=== PATIENT | female | born 1990 | race Caucasian/White ===

== ENCOUNTER 2017-01-07 06:54 | Inpatient (IN) | payer BC ==
[2017-01-07] MEDS ORDERED: Misoprostol 25 MCG (1/4 of 100 MCG) Tab ONE (07:06)
[2017-01-07] MEDS ORDERED: Nalbuphine 20 MG/1 ML Amp IVPUSH PRN (07:29)
[2017-01-07] MEDS ORDERED: Sodium Chloride 0.9% 10 ML Syringe FLUSH PRN (07:29)
[2017-01-07] MEDS ORDERED: Lactated Ringers 1,000 ML IV SCH (07:30)
--- NOTE | 2017-01-07 07:46 | PCM.LDHP ---
L&D History of Present Illness - General Date of Service: 01/07/17 Admit Problem/Dx: Admission Diagnosis/Problem Admission Diagnosis/Problem Source of Information: Patient History Limitations: Reports: No Limitations - History of Present Illness Introduction:: 26-year-old 002 CANDIE 01/12/17 estimated gestational age 39 weeks 2 days admitted for induction of labor GBS negative patient had Cytotec 25 g placed at 0720 hrs. patient had positive fibronectin on 10/22/16 and given Celestone 10/22/16 and 10/23/16 O+ antibody screen negative initial hemoglobin and hematocrit 05/10/1614.9/42.8 platelets 295,000 rubella immune serology nonreactive Fluoroscopy and urine culture negative hepatitis B surface antigen negative HIV abuse screen 85 on 08/13/16 hemoglobin hematocrit on 10/22/1710.5 and 33.6 negative group B strep Improves with: Reports: None Worsens with: Reports: None Associated Symptoms: Reports: N - Related Data Allergies/Adverse Reactions: Allergies Allergy/AdvReac Type Severity Reaction Status Date / Time amoxicillin Allergy Swelling Verified 12/02/16 14:36 Home Medications: Home Meds Ciprofloxacin/Ciprofloxa HCl [Cipro Xr 500 mg Tablet] 500 mg PO BID #10 tbmp.24hr 06/20/14 [Rx] Past Medical History : 3 Para: 2 (2001) Social & Family History - Tobacco Use Smoking Status *Q: Current Status Unknown - Recreational Drug Use Recreational Drug Use: No H&P Review of Systems - Review of Systems: Review Of Systems: See Below General: Reports: No Symptoms HEENT: Reports: No Symptoms Pulmonary: Reports: No Symptoms Cardiovascular: Reports: No Symptoms Gastrointestinal: Reports: No Symptoms Genitourinary: Reports: No Symptoms Musculoskeletal: Reports: No Symptoms Skin: Reports: No Symptoms Psychiatric: Reports: No Symptoms Neurological: Reports: No Symptoms Hematologic/Lymphatic: Reports: No Symptoms Immunologic: Reports: No Symptoms L&D Exam - Exam Exam: See Below - Vital Signs Weight: 158 lb 4.8 oz - OB Specific Fundal Height In cm: 38 Contraction Intensity: Mild Movement: Active Heart Tones: Present Heart Tones per Min: 138 Heart Rate (FHR) Variability: Moderate (6-25 bmp) Presentation: Vertex - Sommers Score Sommers Score Cervix Position: Posterior Sommers Score Consistency: Soft Sommers Score Effacement: 51-70% Sommers Score Dilation: 1-2 cm Sommers Score 's Station: -2 Sommers Score Total: 6 - Exam General: Alert, Oriented HEENT: Mucosa Moist & [place] Neck: Supple, Trachea Midline Lungs: Clear to Auscultation, Normal Respiratory Effort Cardiovascular: Regular Rate, Regular Rhythm Abdomen: Normal Bowel Sounds, Soft, Pelvis Stable Genitourinary: Normal external exam Extremities: Normal Inspection Skin: Warm, Dry, Intact Neurological: Reflexes Equal Bilateral Psychiatric: Alert, Normal Affect, Normal Mood - Problem List (1) 39 weeks gestation of SNOMED Code(s): 67798351 ICD Code: Z3A.39 - 39 WEEKS GESTATION OF Status: Acute Current Visit: Yes Problem List Initiated/Reviewed/Updated: No Orders Last 24hrs: Active Orders 24 hr Category Date Time Status Communication Order [RC] ASDIRECTED Care 01/07/17 07:29 Ordered Communication Order [RC] ASDIRECTED Care 01/07/17 07:29 Ordered Communication Order [RC] ASDIRECTED Care 01/07/17 07:29 Ordered Monitoring [RC] INTERMITTENT Care 01/07/17 07:29 Ordered Notify Provider [RC] ASDIRECTED Care 01/07/17 07:29 Ordered Peripheral IV Care [RC] . DIRECTED Care 01/07/17 07:29 Ordered Vaginal Exam [RC] ASDIRECTED Care 01/07/17 07:29 Ordered Vital Signs [RC] ASDIRECTED Care 01/07/17 07:29 Ordered Clear Liquid Diet [DIET] Diet 01/07/17 Breakfast Ordered CBC WITH AUTO DIFF [HEME] Stat Lab 01/07/17 07:29 Ordered TYPE AND SCREEN [BBK] Stat Lab 01/07/17 07:29 Ordered Lactated Ringers [Ringers, Lactated] 1,000 ml Med 01/07/17 07:30 Ordered IV ASDIRECTED Misoprostol [Cytotec] Med 01/07/17 10:30 Ordered 25 mcg PO Q3H Nalbuphine [Nubain] Med 01/07/17 07:29 Ordered 10 mg IVPUSH Q3H PRN Sodium Chloride 0.9% [Saline Flush] Med 01/07/17 07:29 Ordered 10 ml FLUSH ASDIRECTED PRN Medication Administration Instruction [OM.PC] Oth 01/07/17 07:30 Ordered ASDIRECTED Peripheral IV Insertion Adult [OM.PC] Routine Oth 01/07/17 07:29 Ordered Assessment/Plan Comment:: Mid for induction
--- NOTE | 2017-01-07 08:53 | PCM.OPNOTE ---
- General Post-Op/Procedure Note Date of Surgery/Procedure: 01/07/17 Operative Procedure(s): Repeat section Pre Op Diagnosis: 39 weeks gestation, prior section 2, accessory lobe of the placenta by ultrasound Post-Op Diagnosis: Same Anesthesia Technique: Spinal Primary Surgeon: Freddy Bolivar Secondary Surgeon: Celestino Cameron Anesthesia Provider: Cesia Seth Engineering Mechanic: Cyndi Livingston (MS3) Fluid Replacement, Intraop: 1,000 Output, Urine Amount: 150 EBL in mLs: 500 Drain/Tube Comments:: Christiansen Complications: None Condition: Good Free Text/Narrative:: Patient was transported to operating room #[address] and functioning prior surgery Ancef 2 g given intravenously prior surgery spinal anesthesia placed patient Draped in sterile fashion timeout performed confirming name Chung Wolff procedure repeat section adequate level of anesthesia was confirmed was brought to the operating room injecting 20 mL of 0.5% Marcaine without epinephrine area of the planned incision the Pfannenstiel incision was made and care was sharp section to into the anterior fascia peritoneal cavity entered without difficulty bladder flap created pushed caudad low segment transverse performed delivering a male liveborn 0809 hrs. on Saturday01/07/17 weighing 8 lbs. 9 oz. Apgars 7/9 Dr. Mathews present and attended to the cord blood was collected from normal three-vessel cord placenta was removed manually and confirmed small approximately 8 x 8 cm excess relocated to the placenta placenta delivered Schultze manually discarded after examination. The endometrial cavity was inspected sponge needle pack asthma sharp count correct 1 the uterus closed in 2 layers first layer running locking suture of 0 Monocryl second layer horizontal imbricating suture modified Lembert additional [id number] sutures taken in the midline in 3 areas for hemostasis both tubes and ovaries appeared normal clot screen from the gutters and cul-de-sac uterus pleasant abdominal cavity uterine incision reinspected no bleeding sponge needle pack asthma sharp count correct 2 and the abdominal cavity was closed with #1 PDS running suture irrigation carried out in the subcutaneous tissue and utilizing cautery to reduce scar tissue and allow better approximation of the skin closure the skin was closed with 3-0 Monocryl on Nathan needle, Preneo applied patient transported to postanesthesia care unit in satisfactory condition no blood transfusions were required not anticipated Nusser condition should change clots were cleaned from the vagina prior to transport to postanesthesia care unit.
[2017-01-07] MEDS ORDERED: Misoprostol 25 MCG (1/4 of 100 MCG) Tab VAG ONE (09:30)
[2017-01-07] MEDS ORDERED: Misoprostol 25 MCG (1/4 of 100 MCG) Tab PO SCH (10:30)
[2017-01-07] MEDS ORDERED: Ondansetron 4 MG/2 ML SDV IVPUSH PRN (11:10)
[2017-01-07] MEDS ORDERED: ePHEDrine 50 MG/ML SDV IVPUSH PRN (11:10)
[2017-01-07] MEDS ORDERED: diphenhydrAMINE 50 MG/ML SDV IVPUSH PRN (11:10)
[2017-01-07] MEDS ORDERED: fentaNYL 100 MCG/2 ML SDV EPIDUR PRN (11:10)
[2017-01-07] MEDS ORDERED: Bupivacaine/fentaNYL/NS 100 ML Bag EPIDUR SCH (11:15)
[2017-01-07] MEDS ORDERED: Oxytocin/Lactated Ringers 10 UNIT/1,000 ML BAG IV SCH (13:15)
--- NOTE | 2017-01-07 13:23 | PCM.DEL ---
L & D Note - General Info Date of Service: 01/07/17 - Delivery Note Labor: spontaneous Cervical Ripening Method: Misoprostil (25 g per vagina 1) Delivery Outcome: Livebirth (Male liveborn 1306 hrs. Saturday01/07/17 NICO 3800 g 8 lbs. 6 oz. Apgars 8/9) Delivery Method: Spontaneous Vaginal Delivery Infant Delivery Mode: Spontaneous Presentation: Left Occiput Anterior (NICO) Nuchal Cord: None Prep: Povidone-Iodine (Betadine Anesthesia Type: Epidural Episiotomy Type: None Laceration: 1st degree (First-degree bilateral periurethral lacerations not bleeding not sutured) Placenta: intact, spontaneous (1309 hrs. on Saturday01/07/17 intact central insertion discarded) Cord: 3 vessels Estimated Blood Loss: 250 Resuscitation Needed: No : Suctioned, Bulb Syringe, Stimulated, Warmed, Beth[place] Used, Warmer Used Provider: Freddy Bolivar Score 1 min: 8 Score 5 min: 9 - Patient Data Vitals - most recent: Last Vital Signs Temp 98.6 F 01/07/17 07:29 Pulse 107 H 01/07/17 07:29 Resp 17 01/07/17 07:29 BP 112/80 01/07/17 07:29 Pulse Ox 99 01/07/17 07:29 Weight - most recent: 161 lb 1.6 oz I&O - last 24 hours: Intake & Output 01/06/17 01/07/17 01/07/17 22:59 06:59 14:59 Intake Total 1000 Output Total 150 Balance 850 Lab Results last 24 hrs: Laboratory Results - last 24 hr 01/07/17 01/07/17 Range/Units 07:48 07:48 WBC 12.24 H (3.98-10.04) K/mm3 RBC 3.92 L (3.98-5.22) M/mm3 Hgb 11.9 (11.2-15.7) gm/L Hct 36.2 (34.1-44.9) % MCV 92.3 (79.4-94.8) fl MCH 30.4 (25.6-32.2) pg MCHC 32.9 (32.2-35.5) g/dl RDW Std Deviation 48.5 H (36.4-46.3) fL Plt Count 183 (182-369) K/mm3 MPV 9.8 (9.4-12.3) fl Neut % (Auto) 75.1 H (34.0-71.1) % Lymph % (Auto) 14.8 L (19.3-51.7) % Delta % (Auto) 7.9 (4.7-12.5) % Eos % (Auto) 0.9 (0.7-5.8) Baso % (Auto) 0.2 (0.1-1.2) % Neut # (Auto) 9.20 H (1.56-6.13) K/mm3 Lymph # (Auto) 1.81 (1.18-3.74) K/mm3 Delta # (Auto) 0.97 H (0.24-0.36) K/mm3 Eos # (Auto) 0.11 (0.04-0.36) K/mm3 Baso # (Auto) 0.02 (0.01-0.08) K/mm3 Manual Slide Review Normal smear Blood Type O POSITIVE Gel Antibody Screen Negative Med Orders - Current: Current Medications Diphenhydramine HCl (Benadryl) 25 mg IVPUSH Q6H PRN PRN Reason: Pruritis Ephedrine Sulfate (Ephedrine Sulfate) 5 mg IVPUSH ASDIRECTED PRN PRN Reason: Hypotension Fentanyl (Sublimaze) 100 mcg EPIDUR Q3H PRN PRN Reason: Pain Last Admin: 01/07/17 11:46 Dose: 100 mcg Fentanyl/Bupivacaine HCl (Fentanyl/Bupivacaine/Ns 2 Mcg-0.125% 100 Ml) 100 ml EPIDUR ASDIRECTED CARINA Last Admin: 01/07/17 11:47 Dose: 100 ml Lactated Ringer's (Ringers, Lactated) 1,000 mls @ 40 mls/hr IV ASDIRECTED CARINA Oxytocin/Lactated Ringer's (Pitocin In Lr 10 Units/1,000 Ml) 10 unit in 1,000 mls @ 900 mls/hr IV ASDIRECTED CARINA PRN Reason: 150 MUNITS/MIN Misoprostol (Cytotec) 25 mcg PO Q3H [facility] Stop: 01/07/17 13:31 Nalbuphine HCl (Nubain) 10 mg IVPUSH Q3H PRN PRN Reason: Pain Ondansetron HCl (Zofran) 4 mg IVPUSH ONETIME PRN PRN Reason: Nausea/Vomiting Sodium Chloride (Saline Flush) 10 ml FLUSH ASDIRECTED PRN PRN Reason: Keep Vein Open Discontinued Medications Misoprostol (Cytotec) Confirm Administered Dose 25 mcg .ROUTE .STK-MED ONE Stop: 01/07/17 07:07 Last Admin: 01/07/17 09:12 Dose: Not Given Misoprostol (Cytotec) 25 mcg VAG ONETIME ONE Stop: 01/07/17 09:31 Last Admin: 01/07/17 07:20 Dose: 25 mcg - Problem List & Annotations (1) 39 weeks gestation of SNOMED Code(s): 50608992 Code(s): Z3A.39 - 39 WEEKS GESTATION OF Status: Acute Current Visit: Yes (2) First-degree perineal laceration, with delivery SNOMED Code(s): 811825109 Code(s): O70.0 - FIRST DEGREE PERINEAL LACERATION DURING DELIVERY Status: Acute Current Visit: Yes - Problem List Review Problem List Initiated/Reviewed/Updated: No - My Orders Last 24 Hours: My Active Orders 01/07/17 07:29 Communication Order [RC] ASDIRECTED Communication Order [RC] ASDIRECTED Monitoring [RC] INTERMITTENT Notify Provider [RC] ASDIRECTED Peripheral IV Care [RC] . DIRECTED Vital Signs [RC] ASDIRECTED Nalbuphine [Nubain] 10 mg IVPUSH Q3H PRN Sodium Chloride 0.9% [Saline Flush] 10 ml FLUSH ASDIRECTED PRN Peripheral IV Insertion Adult [OM.PC] Routine 01/07/17 07:30 Lactated Ringers [Ringers, Lactated] 1,000 ml IV ASDIRECTED Medication Administration Instruction [OM.PC] ASDIRECTED 01/07/17 08:54 Resuscitation Status Routine 01/07/17 10:30 Misoprostol [Cytotec] 25 mcg PO Q3H 01/07/17 13:15 Oxytocin/Lactated Ringers [Pitocin in LR 10 Units/1,000 ML] 10 unit in 1,000 ml IV ASDIRECTED 01/07/17 Breakfast Clear Liquid Diet [DIET] - Plan Plan:: Mid for induction
[2017-01-07] MEDS ORDERED: Acetaminophen 325 MG Tab PO PRN (13:29)
[2017-01-07] MEDS ORDERED: Benzocaine/Menthol 20%-0.5% Spray 56 GM Canister TOP PRN (13:29)
[2017-01-07] MEDS ORDERED: Bupivacaine 0.25% 10 ML SDV ONE (13:29)
[2017-01-07] MEDS ORDERED: Docusate Sodium 100 MG Cap PO PRN (13:29)
[2017-01-07] MEDS ORDERED: Lanolin 100% Cream 7 GM Tube TOP PRN (13:29)
[2017-01-07] MEDS ORDERED: Witch Hazel Medicated Pads 100/Jar TOP PRN (13:29)
[2017-01-07] MEDS ORDERED: Misoprostol 200 MCG Tab PO PRN (13:50)
[2017-01-07] MEDS ORDERED: Misoprostol 200 MCG Tab ONE (13:51)
[2017-01-07] MEDS ORDERED: Oxytocin/Lactated Ringers 10 UNIT/1,000 ML BAG IV ONE (14:48)
[2017-01-07] MEDS: Ibuprofen 600 MG Tab PO PRN (17:06)
[2017-01-07] MEDS: metroNIDAZOLE 500 MG Tab PO SCH (20:47)
[2017-01-08] MEDS: Ibuprofen 600 MG Tab PO PRN ×2 (02:46→08:11)
[2017-01-08] MEDS: Acetaminophen/oxyCODONE 325-5 MG Tab PO PRN ×3 (04:07→13:49)
--- NOTE | 2017-01-08 08:43 | PCM.DCSUM1 ---
Discharge Summary - Hospital Course Free Text/Narrative:: [facility] LIVE L/D Delivery Note Patient Name: LASHAY FERRELL Date of : 89 Patient Status: Inpatient Attending Provider: Freddy Bolivar Date: 01/07/17 13:18 Initialization Date: 01/07/17 13:18 L & D Note - General Info Date of Service: 01/07/17 - Delivery Note Labor: spontaneous Cervical Ripening Method: Misoprostil (25 g per vagina 1) Delivery Outcome: Livebirth (Male liveborn 1306 hrs. Saturday01/07/17 NICO 3800 g 8 lbs. 6 oz. Apgars 8/9) Infant Delivery Method: Spontaneous Vaginal Delivery Infant Delivery Mode: Spontaneous Presentation: Left Occiput Anterior (NICO) Nuchal Cord: None Prep: Povidone-Iodine (Betadine Anesthesia Type: Epidural Episiotomy Type: None Laceration: 1st degree (First-degree bilateral periurethral lacerations not bleeding not sutured) Placenta: intact, spontaneous (1309 hrs. on Saturday01/07/17 intact central insertion discarded) Cord: 3 vessels Estimated Blood Loss: 250 Resuscitation Needed: No : Suctioned, Bulb Syringe, Stimulated, Warmed, [place] Used, Warmer Used Provider: Freddy Bolivar Score 1 min: 8 Score 5 min: 9 - Patient Data Vitals - most recent: Last Vital Signs Temp 98.6 F 01/07/17 07:29 Pulse 107 H 01/07/17 07:29 Resp 17 01/07/17 07:29 BP 112/80 01/07/17 07:29 Pulse Ox 99 01/07/17 07:29 Weight - most recent: 161 lb 1.6 oz I&O - last 24 hours: Intake & Output 01/06/17 01/07/17 01/07/17 22:59 06:59 14:59 Intake Total 1000 Output Total 150 Balance 850 Lab Results last 24 hrs: Laboratory Results - last 24 hr 01/07/17 01/07/17 Range/Units 07:48 07:48 WBC 12.24 H (3.98-10.04) K/mm3 RBC 3.92 L (3.98-5.22) M/mm3 Hgb 11.9 (11.2-15.7) gm/L Hct 36.2 (34.1-44.9) % MCV 92.3 (79.4-94.8) fl MCH 30.4 (25.6-32.2) pg MCHC 32.9 (32.2-35.5) g/dl RDW Std Deviation 48.5 H (36.4-46.3) fL Plt Count 183 (182-369) K/mm3 MPV 9.8 (9.4-12.3) fl Neut % (Auto) 75.1 H (34.0-71.1) % Lymph % (Auto) 14.8 L (19.3-51.7) % [place] % (Auto) 7.9 (4.7-12.5) % Eos % (Auto) 0.9 (0.7-5.8) Baso % (Auto) 0.2 (0.1-1.2) % Neut # (Auto) 9.20 H (1.56-6.13) K/mm3 Lymph # (Auto) 1.81 (1.18-3.74) K/mm3 [place] # (Auto) 0.97 H (0.24-0.36) K/mm3 Eos # (Auto) 0.11 (0.04-0.36) K/mm3 Baso # (Auto) 0.02 (0.01-0.08) K/mm3 Manual Slide Review Normal smear Blood Type O POSITIVE Gel Antibody Screen Negative Med Orders - Current: Current Medications Diphenhydramine HCl (Benadryl) 25 mg IVPUSH Q6H PRN PRN Reason: Pruritis Ephedrine Sulfate (Ephedrine Sulfate) 5 mg IVPUSH ASDIRECTED PRN PRN Reason: Hypotension Fentanyl (Sublimaze) 100 mcg EPIDUR Q3H PRN PRN Reason: Pain Last Admin: 01/07/17 11:46 Dose: 100 mcg Fentanyl/Bupivacaine HCl (Fentanyl/Bupivacaine/Ns 2 Mcg-0.125% 100 Ml) 100 ml EPIDUR ASDIRECTED CARINA Last Admin: 01/07/17 11:47 Dose: 100 ml Lactated Ringer's (Ringers, Lactated) 1,000 mls @ 40 mls/hr IV ASDIRECTED CARINA Oxytocin/Lactated Ringer's (Pitocin In Lr 10 Units/1,000 Ml) 10 unit in 1,000 mls @ 900 mls/hr IV ASDIRECTED CARINA PRN Reason: 150 MUNITS/MIN Misoprostol (Cytotec) 25 mcg PO Q3H [facility] Stop: 01/07/17 13:31 Nalbuphine HCl (Nubain) 10 mg IVPUSH Q3H PRN PRN Reason: Pain Ondansetron HCl (Zofran) 4 mg IVPUSH ONETIME PRN PRN Reason: Nausea/Vomiting Sodium Chloride (Saline Flush) 10 ml FLUSH ASDIRECTED PRN PRN Reason: Keep Vein Open Discontinued Medications Misoprostol (Cytotec) Confirm Administered Dose 25 mcg .ROUTE .STK-MED ONE Stop: 01/07/17 07:07 Last Admin: 01/07/17 09:12 Dose: Not Given Misoprostol (Cytotec) 25 mcg VAG ONETIME ONE Stop: 01/07/17 09:31 Last Admin: 01/07/17 07:20 Dose: 25 mcg - Problem List & Annotations (1) 39 weeks gestation of SNOMED Code(s): 48659293 Code(s): Z3A.39 - 39 WEEKS GESTATION OF Status: Acute Current Visit: Yes (2) First-degree perineal laceration, with delivery SNOMED Code(s): 227223100 Code(s): O70.0 - FIRST DEGREE PERINEAL LACERATION DURING DELIVERY Status: Acute Current Visit: Yes - Problem List Review Problem List Initiated/Reviewed/Updated: No - My Orders Last 24 Hours: My Active Orders 01/07/17 07:29 Communication Order [RC] ASDIRECTED Communication Order [RC] ASDIRECTED Monitoring [RC] INTERMITTENT Notify Provider [RC] ASDIRECTED Peripheral IV Care [RC] . DIRECTED Vital Signs [RC] ASDIRECTED Nalbuphine [Nubain] 10 mg IVPUSH Q3H PRN Sodium Chloride 0.9% [Saline Flush] 10 ml FLUSH ASDIRECTED PRN Peripheral IV Insertion Adult [OM.PC] Routine 01/07/17 07:30 Lactated Ringers [Ringers, Lactated] 1,000 ml IV ASDIRECTED Medication Administration Instruction [OM.PC] ASDIRECTED 01/07/17 08:54 Resuscitation Status Routine 01/07/17 10:30 Misoprostol [Cytotec] 25 mcg PO Q3H 01/07/17 13:15 Oxytocin/Lactated Ringers [Pitocin in LR 10 Units/1,000 ML] 10 unit in 1,000 ml IV ASDIRECTED 01/07/17 Breakfast Clear Liquid Diet [DIET] - Plan Plan:: Mid for induction HPI Initial Comments: [facility] LIVE L/D Delivery Note Patient Name: LASHAY FERRELL Date of : 89 Patient Status: Inpatient Attending Provider: Freddy Bolivar Date: 01/07/17 13:18 Initialization Date: 01/07/17 13:18 L & D Note - General Info Date of Service: 01/07/17 - Delivery Note Labor: spontaneous Cervical Ripening Method: Misoprostil (25 g per vagina 1) Delivery Outcome: Livebirth (Male liveborn 1306 hrs. Saturday01/07/17 NICO 3800 g 8 lbs. 6 oz. Apgars 8/9) Delivery Method: Spontaneous Vaginal Delivery Infant Delivery Mode: Spontaneous Presentation: Left Occiput Anterior (NICO) Nuchal Cord: None Prep: Povidone-Iodine (Betadine Anesthesia Type: Epidural Episiotomy Type: None Laceration: 1st degree (First-degree bilateral periurethral lacerations not bleeding not sutured) Placenta: intact, spontaneous (1309 hrs. on Saturday01/07/17 intact central insertion discarded) Cord: 3 vessels Estimated Blood Loss: 250 Resuscitation Needed: No : Suctioned, Bulb Syringe, Stimulated, Warmed, [place] Used, Warmer Used Provider: Freddy Bolivar Score 1 min: 8 Score 5 min: 9 - Patient Data Vitals - most recent: Last Vital Signs Temp 98.6 F 01/07/17 07:29 Pulse 107 H 01/07/17 07:29 Resp 17 01/07/17 07:29 BP 112/80 01/07/17 07:29 Pulse Ox 99 01/07/17 07:29 Weight - most recent: 161 lb 1.6 oz I&O - last 24 hours: Intake & Output 01/06/17 01/07/1717 22:59 06:59 14:59 Intake Total 1000 Output Total 150 Balance 850 Lab Results last 24 hrs: Laboratory Results - last 24 hr 01/07/17 01/07/17 Range/Units 07:48 07:48 WBC 12.24 H (3.98-10.04) K/mm3 RBC 3.92 L (3.98-5.22) M/mm3 Hgb 11.9 (11.2-15.7) gm/L Hct 36.2 (34.1-44.9) % MCV 92.3 (79.4-94.8) fl MCH 30.4 (25.6-32.2) pg MCHC 32.9 (32.2-35.5) g/dl RDW Std Deviation 48.5 H (36.4-46.3) fL Plt Count 183 (182-369) K/mm3 MPV 9.8 (9.4-12.3) fl Neut % (Auto) 75.1 H (34.0-71.1) % Lymph % (Auto) 14.8 L (19.3-51.7) % [place] % (Auto) 7.9 (4.7-12.5) % Eos % (Auto) 0.9 (0.7-5.8) Baso % (Auto) 0.2 (0.1-1.2) % Neut # (Auto) 9.20 H (1.56-6.13) K/mm3 Lymph # (Auto) 1.81 (1.18-3.74) K/mm3 [place] # (Auto) 0.97 H (0.24-0.36) K/mm3 Eos # (Auto) 0.11 (0.04-0.36) K/mm3 Baso # (Auto) 0.02 (0.01-0.08) K/mm3 Manual Slide Review Normal smear Blood Type O POSITIVE Gel Antibody Screen Negative Med Orders - Current: Current Medications Diphenhydramine HCl (Benadryl) 25 mg IVPUSH Q6H PRN PRN Reason: Pruritis Ephedrine Sulfate (Ephedrine Sulfate) 5 mg IVPUSH ASDIRECTED PRN PRN Reason: Hypotension Fentanyl (Sublimaze) 100 mcg EPIDUR Q3H PRN PRN Reason: Pain Last Admin: 01/07/17 11:46 Dose: 100 mcg Fentanyl/Bupivacaine HCl (Fentanyl/Bupivacaine/Ns 2 Mcg-0.125% 100 Ml) 100 ml EPIDUR ASDIRECTED [facility] Last Admin: 01/07/17 11:47 Dose: 100 ml Lactated Ringer's (Ringers, Lactated) 1,000 mls @ 40 mls/hr IV ASDIRECTED [facility] Oxytocin/Lactated Ringer's (Pitocin In Lr 10 Units/1,000 Ml) 10 unit in 1,000 mls @ 900 mls/hr IV ASDIRECTED CARINA PRN Reason: 150 MUNITS/MIN Misoprostol (Cytotec) 25 mcg PO Q3H [facility] Stop: 01/07/17 13:31 Nalbuphine HCl (Nubain) 10 mg IVPUSH Q3H PRN PRN Reason: Pain Ondansetron HCl (Zofran) 4 mg IVPUSH ONETIME PRN PRN Reason: Nausea/Vomiting Sodium Chloride (Saline Flush) 10 ml FLUSH ASDIRECTED PRN PRN Reason: Keep Vein Open Discontinued Medications Misoprostol (Cytotec) Confirm Administered Dose 25 mcg .ROUTE .STK-MED ONE Stop: 01/07/17 07:07 Last Admin: 01/07/17 09:12 Dose: Not Given Misoprostol (Cytotec) 25 mcg VAG ONETIME ONE Stop: 01/07/17 09:31 Last Admin: 01/07/17 07:20 Dose: 25 mcg - Problem List & Annotations (1) 39 weeks gestation of SNOMED Code(s): 17079551 Code(s): Z3A.39 - 39 WEEKS GESTATION OF Status: Acute Current Visit: Yes (2) First-degree perineal laceration, with delivery SNOMED Code(s): 627736286 Code(s): O70.0 - FIRST DEGREE PERINEAL LACERATION DURING DELIVERY Status: Acute Current Visit: Yes - Problem List Review Problem List Initiated/Reviewed/Updated: No - My Orders Last 24 Hours: My Active Orders 01/07/17 07:29 Communication Order [RC] ASDIRECTED Communication Order [RC] ASDIRECTED Monitoring [RC] INTERMITTENT Notify Provider [RC] ASDIRECTED Peripheral IV Care [RC] . DIRECTED Vital Signs [RC] ASDIRECTED Nalbuphine [Nubain] 10 mg IVPUSH Q3H PRN Sodium Chloride 0.9% [Saline Flush] 10 ml FLUSH ASDIRECTED PRN Peripheral IV Insertion Adult [OM.PC] Routine 01/07/17 07:30 Lactated Ringers [Ringers, Lactated] 1,000 ml IV ASDIRECTED Medication Administration Instruction [OM.PC] ASDIRECTED 01/07/17 08:54 Resuscitation Status Routine 01/07/17 10:30 Misoprostol [Cytotec] 25 mcg PO Q3H 01/07/17 13:15 Oxytocin/Lactated Ringers [Pitocin in LR 10 Units/1,000 ML] 10 unit in 1,000 ml IV ASDIRECTED 01/07/17 Breakfast Clear Liquid Diet [DIET] - Plan Plan:: Mid for induction Brief History: [facility] LIVE . L/D Delivery Note. [facility] Number: [id number]. Date of : Patient Status: Inpatient. Attending Provider: Freddy Boliavr Number: [id number]. Date: 01/07/17 13:18Initialization Date: 01/07/17 13:18. L & D Note. - General Info. Date of Service: 01/07/17. - Delivery Note. Labor: spontaneous. Cervical Ripening Method: Misoprostil (25 g per vagina 1) . Delivery Outcome: Livebirth (Male liveborn 1306 hrs. Saturday01/07/17 NICO 3800 g 8 lbs. 6 oz. Apgars 8/9). Delivery Method: Spontaneous Vaginal Delivery. Delivery Mode: Spontaneous. Presentation: Left Occiput Anterior (NICO). Nuchal Cord: None. Prep: Povidone-Iodine (Betadine. Anesthesia Type: Epidural. Episiotomy Type: None. Laceration: 1st degree ( First-degree bilateral periurethral lacerations not bleeding not sutured). Placenta: intact, spontaneous (1309 hrs. on Saturday01/07/17 intact central insertion discarded). Cord: 3 vessels. Estimated Blood Loss: 250. Resuscitation Needed: No. : Suctioned, Bulb Syringe, Stimulated, Warmed , [place] Used, Warmer Used. Provider: Freddy Bolivar. Score 1 min: 8. Score 5 min: 9. - Patient Data. Vitals - most recent: Last Vital Signs. Temp 98.6 F 01/07/17 07:29. Pulse 107 H 01/07/17 07:29. Resp 17 01/07/17 07:29. BP 112/80 01/07/17 07:29. Pulse Ox 99 01/07/17 07: 29. Weight - most recent: 161 lb 1.6 oz. I&O - last 24 hours: Intake & Output. 01/06/170703/1707. 22:5906:5914:59. Intake [id number]. Output [id number]. [id number]. Lab Results last 24 hrs: Laboratory Results - last 24 hr. 01/07/1707Range/Units. 07:4807:48. WBC 12.24 H (3.98-10.04) K/ mm3. RBC 3.92 L (3.98-5.22) M/mm3. Hgb 11.9 (11.2-15.7) gm/L. Hct 36.2 ( 34.1-44.9) %. MCV 92.3 (79.4-94.8) fl. MCH 30.4 (25.6-32.2) pg. MCHC 32.9 (32.2-35.5) g/dl. RDW Std Deviation 48.5 H (36.4-46.3) fL. Plt Count 183 ( 182-369) K/mm3. MPV 9.8 (9.4-12.3) fl. Neut % (Auto) 75.1 H (34.0-71.1) %. Lymph % (Auto) 14.8 L (19.3-51.7) %. [place] % (Auto) 7.9 (4.7-12.5) %. Eos % (Auto) 0.9 (0.7-5.8). Baso % (Auto) 0.2 (0.1-1.2) %. Neut # (Auto) 9.20 H ( 1.56-6.13) K/mm3. Lymph # (Auto) 1.81 (1.18-3.74) K/mm3. [place] # (Auto) 0.97 H (0.24-0.36) K/mm3. Eos # (Auto) 0.11 (0.04-0.36) K/mm3. Baso # (Auto) 0.02 (0.01-0.08) K/mm3. Manual Slide Review Normal smear. Blood Type O POSITIVE. Gel Antibody Screen Negative. Med Orders - Current: Current Medications. Diphenhydramine HCl (Benadryl) 25 mg IVPUSH Q6H PRN. PRN Reason : Pruritis. Ephedrine Sulfate (Ephedrine Sulfate) 5 mg IVPUSH ASDIRECTED PRN. PRN Reason: Hypotension. Fentanyl (Sublimaze) 100 mcg EPIDUR Q3H PRN. PRN Reason: Pain. Last Admin: 01/07/17 11:46 Dose: 100 mcg. Fentanyl/Bupivacaine HCl (Fentanyl/Bupivacaine/Ns 2 Mcg-0.125% 100 Ml) 100 ml EPIDUR ASDIRECTED CARINA. Last Admin: 01/07/17 11:47 Dose: 100 ml. Lactated Ringer's (Ringers, Lactated) 1,000 mls @ 40 mls/hr IV ASDIRECTED CARINA. Oxytocin/Lactated Ringer's (Pitocin In Lr 10 Units/1,000 Ml) 10 unit in 1,000 mls @ 900 mls/hr IV ASDIRECTED CARINA. PRN Reason: 150 MUNITS/MIN. Misoprostol (Cytotec) 25 mcg PO Q3H [facility]. Stop: 01/07/17 13:31. Nalbuphine HCl (Nubain) 10 mg IVPUSH Q3H PRN. PRN Reason: Pain. Ondansetron HCl (Zofran) 4 mg IVPUSH ONETIME PRN. PRN Reason: Nausea/Vomiting. Sodium Chloride (Saline Flush) 10 ml FLUSH ASDIRECTED PRN. PRN Reason: Keep Vein Open. Discontinued Medications. Misoprostol (Cytotec) Confirm Administered Dose 25 mcg .ROUTE .STK-MED ONE. Stop: 01/07/17 07:07. Last Admin: 01/07/17 09:12 Dose: Not Given. Misoprostol (Cytotec) 25 mcg VAG ONETIME ONE. Stop: 01/07/17 09:31. Last Admin: 01/07/17 07:20 Dose: 25 mcg. - Problem List & Annotations. (1) 39 weeks gestation of . SNOMED Code(s): 59259323. Code(s): Z3A.39 - 39 WEEKS GESTATION OF Status: Acute Current Visit: Yes. (2) First- degree perineal laceration, with delivery. SNOMED Code(s): 355679619. Code(s) : O70.0 - FIRST DEGREE PERINEAL LACERATION DURING DELIVERY Status: Acute Current Visit: Yes. - Problem List Review. Problem List Initiated/Reviewed/ Updated: No. - My Orders. Last 24 Hours: My Active Orders. 01/07/17 07:29. Communication Order [RC] ASDIRECTED. Communication Order [RC] ASDIRECTED. Monitoring [RC] INTERMITTENT. Notify Provider [RC] ASDIRECTED. Peripheral IV Care [RC] . DIRECTED. Vital Signs [RC] ASDIRECTED. Nalbuphine [Nubain] 10 mg IVPUSH Q3H PRN. Sodium Chloride 0.9% [Saline Flush] 10 ml FLUSH ASDIRECTED PRN. Peripheral IV Insertion Adult [OM.PC] Routine. 01/07/17 07:30. Lactated Ringers [Ringers, Lactated] 1,000 ml IV ASDIRECTED. Medication Administration Instruction [OM.PC] ASDIRECTED. 01/07/17 08:54. Resuscitation Status Routine. 01/07/17 10:30. Misoprostol [Cytotec] 25 mcg PO Q3H. 01/07/17 13:15. Oxytocin/Lactated Ringers [Pitocin in LR 10 Units/1, 000 ML] 10 unit in 1,000 ml IV ASDIRECTED. 01/07/17 Breakfast. Clear Liquid Diet [DIET]. - Plan. Plan:: Mid for induction - Discharge Data Discharge Date: 01/08/17 Discharge Disposition: Home, Self-Care 01 Condition: Good - Discharge Diagnosis/Problem(s) (1) 39 weeks gestation of SNOMED Code(s): 21466428 ICD Code: Z3A.39 - 39 WEEKS GESTATION OF Status: Acute Current Visit: Yes (2) First-degree perineal laceration, with delivery SNOMED Code(s): 940874215 ICD Code: O70.0 - FIRST DEGREE PERINEAL LACERATION DURING DELIVERY Status: Acute Current Visit: Yes - Patient Summary/Data Complications: none Consults: none Hospital Course: uneventful - Patient Instructions Diet: Heart Healthy Diet Driving: Do Not Drive (48 hrs) Showering/Bathing: May Shower Notify Provider of: Fever, Increased Pain, Swelling and Redness, Drainage, Nausea and/or Vomiting - Discharge Plan Home Medications: Home Meds Vit W-Ca,Fe,FA(<1 mg) [ Vitamins] 1 tab PO DAILY 01/07/17 [ History] Acetaminophen [Tylenol] 650 mg PO Q6H PRN #0 tablet 01/08/17 [Rx] Benzocaine/Menthol [Dermoplast Pain Relief [place]] 1 spray TOP ASDIRECTED PRN #0 canister 01/08/17 [Rx] Docusate Sodium [Colace] 100 mg PO BID PRN #0 cap 01/08/17 [Rx] Ibuprofen [IJD: Ibuprofen] 200 - 600 mg PO Q6H PRN #0 tablet 01/08/17 [Rx] Witch Sandra [Tucks] 1 pad TOP ASDIRECTED PRN #0 pad 01/08/17 [Rx] Referrals: Freddy Bolivar MD [Physician] - (6 week) - Discharge Summary/Plan Comment DC Time >30 min.: No - Patient Data Vitals - Most Recent: Last Vital Signs Temp 98.2 F 01/07/17 20:38 Pulse 78 01/08/17 04:07 Resp 15 01/08/17 04:07 BP 109/66 01/08/17 04:07 Pulse Ox 98 01/08/17 04:07 Weight - Most Recent: 161 lb 1.6 oz I&O - Last 24 hours: Intake & Output 01/07/17 01/08/17 01/08/17 22:59 06:59 14:59 Intake Total 75 Balance 75 Lab Results - Last 24 hrs: Laboratory Results - last 24 hr 01/07/17 01/08/17 Range/Units 07:48 05:45 WBC 14.91 H (3.98-10.04) K/mm3 RBC 3.78 L (3.98-5.22) M/mm3 Hgb 11.7 (11.2-15.7) gm/L Hct 34.7 (34.1-44.9) % MCV 91.8 (79.4-94.8) fl MCH 31.0 (25.6-32.2) pg MCHC 33.7 (32.2-35.5) g/dl RDW Std Deviation 46.9 H (36.4-46.3) fL Plt Count 167 L (182-369) K/mm3 MPV 10.4 (9.4-12.3) fl Neut % (Auto) 76.1 H (34.0-71.1) % Lymph % (Auto) 12.2 L (19.3-51.7) % [place] % (Auto) 9.8 (4.7-12.5) % Eos % (Auto) 0.7 (0.7-5.8) Baso % (Auto) 0.1 (0.1-1.2) % Neut # (Auto) 11.35 H (1.56-6.13) K/mm3 Lymph # (Auto) 1.82 (1.18-3.74) K/mm3 [place] # (Auto) 1.46 H (0.24-0.36) K/mm3 Eos # (Auto) 0.10 (0.04-0.36) K/mm3 Baso # (Auto) 0.02 (0.01-0.08) K/mm3 Manual Slide Review Normal smear Blood Type O POSITIVE Gel Antibody Screen Negative Med Orders - Current: Current Medications Acetaminophen (Tylenol) 650 mg PO Q4H PRN PRN Reason: mild pain or fever Last Admin: 01/07/17 20:47 Dose: 650 mg Benzocaine/Menthol (Dermoplast Pain Relief [place]) 0 gm TOP ASDIRECTED PRN PRN Reason: Perineal Comfort Measure Last Admin: 01/07/17 14:53 Dose: 1 spray Docusate Sodium (Colace) 100 mg PO BID PRN PRN Reason: Constipation Last Admin: 01/08/17 08:11 Dose: 100 mg Emollient Ointment (Lansinoh Hpa) 0 gm TOP ASDIRECTED PRN PRN Reason: Sore Nipples Last Admin: 01/07/17 17:07 Dose: 1 tube Ibuprofen (Motrin) 600 mg PO Q4H PRN PRN Reason: Mild pain or fever Last Admin: 01/08/17 08:11 Dose: 600 mg Metronidazole (Flagyl) 500 mg PO BID [facility] Last Admin: 01/07/17 20:47 Dose: 500 mg Misoprostol (Cytotec) 400 mcg PO Q6H PRN PRN Reason: Bleeding Last Admin: 01/07/17 13:55 Dose: 400 mcg Oxycodone/Acetaminophen (Percocet 325-5 Mg) 2 tab PO Q4H PRN PRN Reason: Pain (moderate 4-6) Last Admin: 01/08/17 04:07 Dose: 2 tab Witch Sandra (Tucks) 1 pad TOP ASDIRECTED PRN PRN Reason: Hemorrhoid pain Last Admin: 01/07/17 14:53 Dose: 1 tub Discontinued Medications Diphenhydramine HCl (Benadryl) 25 mg IVPUSH Q6H PRN PRN Reason: Pruritis Ephedrine Sulfate (Ephedrine Sulfate) 5 mg IVPUSH ASDIRECTED PRN PRN Reason: Hypotension Fentanyl (Sublimaze) 100 mcg EPIDUR Q3H PRN PRN Reason: Pain Last Admin: 01/07/17 11:46 Dose: 100 mcg Fentanyl/Bupivacaine HCl (Fentanyl/Bupivacaine/Ns 2 Mcg-0.125% 100 Ml) 100 ml EPIDUR ASDIRECTED [facility] Last Admin: 01/07/17 11:47 Dose: 100 ml Lactated Ringer's (Ringers, Lactated) 1,000 mls @ 40 mls/hr IV ASDIRECTED [facility] Oxytocin/Lactated Ringer's (Pitocin In Lr 10 Units/1,000 Ml) 10 unit in 1,000 mls @ 900 mls/hr IV ASDIRECTED CARINA PRN Reason: 150 MUNITS/MIN Last Admin: 01/07/17 13:10 Dose: 150 munits/min, 500 mls/hr Oxytocin/Lactated Ringer's (Pitocin In Lr 10 Units/1,000 Ml) Confirm Administered Dose 10 unit in 1,000 mls @ as directed IV .STK-MED ONE Stop: 01/07/17 14:49 Last Admin: 01/07/17 14:54 Dose: Not Given Misoprostol (Cytotec) Confirm Administered Dose 25 mcg .ROUTE .STK-MED ONE Stop: 01/07/17 07:07 Last Admin: 01/07/17 09:12 Dose: Not Given Misoprostol (Cytotec) 25 mcg PO Q3H [facility] Stop: 01/07/17 13:31 Last Admin: 01/07/17 14:07 Dose: Not Given Misoprostol (Cytotec) 25 mcg VAG ONETIME ONE Stop: 01/07/17 09:31 Last Admin: 01/07/17 07:20 Dose: 25 mcg Misoprostol (Cytotec) Confirm Administered Dose 400 mcg .ROUTE .STK-MED ONE Stop: 01/07/17 13:52 Last Admin: 01/07/17 14:06 Dose: Not Given Nalbuphine HCl (Nubain) 10 mg IVPUSH Q3H PRN PRN Reason: Pain Ondansetron HCl (Zofran) 4 mg IVPUSH ONETIME PRN PRN Reason: Nausea/Vomiting Sodium Chloride (Saline Flush) 10 ml FLUSH ASDIRECTED PRN PRN Reason: Keep Vein Open *Q Meaningful Use (DIS) - VTE *Q VTE Criteria *Q: - Stroke *Q Stroke Criteria *Q: - AMI *Q AMI Criteria *Q:
[2017-01-08] MEDS: metroNIDAZOLE 500 MG Tab PO SCH (09:13)
--- NOTE | 2017-01-08 12:28 | PCM48HPAN ---
Post Anesthesia Note - EVALUATION WITHIN 48HRS OF ANESTHETIC Vital Signs in Normal Range: Yes Patient Participated in Evaluation: Yes Respiratory Function Stable: Yes Airway Patent: Yes Cardiovascular Function Stable: Yes Hydration Status Stable: Yes Pain Control Satisfactory: Yes Nausea and Vomiting Control Satisfactory: Yes Mental Status Recovered: Yes
[2017-01-08 14:06] VITALS: BP 102/69
== END 2017-01-08 16:20 | disposition home or self-care (01) | DRG 560 ==
LOC: JD.OB 06:54 → OBSVTOIN 13:06 → JD.OB 13:06
PROVIDERS: ADMIT Obstetrics & Gynecology; ATTEND Obstetrics & Gynecology
PROC: 10E0XZZ Delivery of Products of Conception, External Approach (ICD-10-PCS; principal; 2017-01-07)
PROC: 3E0P7GC Introduction of Other Therapeutic Substance into Female Reproductive, Via Natural or Artificial Opening (ICD-10-PCS; 2017-01-07)
PROC: 00HU33Z Insertion of Infusion Device into Spinal Canal, Percutaneous Approach (ICD-10-PCS; 2017-01-07)
PROC: 3E0R3CZ (ICD-10-PCS; 2017-01-07)
DX: O71.82 Other specified trauma to perineum and vulva (principal); Z3A.39 39 weeks gestation of pregnancy; Z37.0 Single live birth; Z88.1 Allergy status to other antibiotic agents
CPT/HCPCS: 01967; 36415; 85025; 86850; 86900; 86901; A9270-GY; J2590; J3010